=== PATIENT | male | born 1990 | race Caucasian/White ===

== ENCOUNTER 2017-12-26 08:25 | Emergency (ER) | payer OTHER ==
[2017-12-26 08:37] VITALS: BP 131/58; PULSE 81; RESP 16; TEMP 98
--- NOTE | 2017-12-26 08:48 | ED ---
General Adult HPI - General Chief complaint: Extremity Injury, Upper Stated complaint: Splinter Time Seen by Provider: 12/26/17 08:41 Source: patient, RN notes reviewed Mode of arrival: ambulatory Limitations: no limitations - History of Present Illness Initial comments: Patient 27-year-old male who presents emergency room today with a chief complaint of possible foreign body to the right index finger. He states that a few days ago noticed that he had a sliver. He states tried to get out on his own but is been unable to. He states woke up today with increased swelling of redness and pain to the right index finger. Patient states his tetanus is up-to -date. He denies any other complaints at this time. Patient denies any recent fever, chills, shortness of breath, chest pain, back pain, abdominal pain, nausea or vomiting, numbness tingling, headaches or visual changes, or any other complaints. - Related Data Home Medications Medication Instructions Recorded Confirmed EPINEPHrine (Auto Inject) [Epipen] 0.3 mg IM ONCE 12/26/17 12/26/17 Previous Rx's Medication Instructions Recorded Amoxicillin/Potassium Clav 1 each PO Q12HR #20 tab 12/26/17 [Augmentin 875-125 Tablet] Allergies Allergy/AdvReac Type Severity Reaction Status Date / Time bee venom protein (honey bee) Allergy Anaphylaxis Verified 12/26/17 08:47 Review of Systems ROS Statement: Those systems with pertinent positive or pertinent negative responses have been documented in the HPI. ROS Other: All systems not noted in ROS Statement are negative. Past Medical History Past Medical History: No Reported History History of Any Multi-Drug Resistant Organisms: None Reported Past Surgical History: No Surgical Hx Reported Past Psychological History: No Psychological Hx Reported Smoking Status: Current every day smoker Past Alcohol Use History: Occasional Past Drug Use History: None Reported General Exam - General Exam Comments Initial Comments: General: The patient is awake and alert, in no distress, and does not appear acutely ill. Neck: The neck is supple, there is no tenderness or JVD. Cardiovascular: There is a regular rate and rhythm. No murmur, rub or gallop is appreciated. Respiratory: Lungs are clear to auscultation, respirations are non-labored, breath sounds are equal. No wheezes, stridor, rales, or rhonchi. Musculoskeletal: Patient does show good range of motion of the right index finger. Slightly decreased due to pain and swelling. Does have redness and inflammation and swelling around the PIP joint and distally. Cap refill less than 2 seconds. Sensations are intact. Strength is 5/5. Pulses equal bilaterally 2+. Neurological: A&O x 3. CN II-XII intact, There are no obvious motor or sensory deficits. Coordination appears grossly intact. Speech is normal. Skin: Skin is warm and dry and no rashes or lesions are noted. Psychiatric: Normal mood and affect. Limitations: no limitations Course Vital Signs 12/26/17 08:34 Temperature 98 F Pulse Rate 81 Respiratory 16 Rate Blood Pressure 131/58 O2 Sat by Pulse 98 Oximetry Procedures - Procedures Initial comment: 1% lidocaine was used to anesthetize the right index finger at the head of the metacarpals. 11 blade was used to drag ulcerated area for any evidence of foreign body. Unable to determine the direction of which sliver went through the skin. Medical Decision Making - Medical Decision Making Unable to remove foreign body here in emergency room. Advised patient to follow up with orthopedics and call the office later today. Patient was here on antibiotics. His tetanus is up-to-date. He is advised to return to emergency room symptoms increase or worsen. Disposition Clinical Impression: Foreign body finger, Finger infection Disposition: HOME SELF-CARE Condition: Good Instructions: Soft Tissue Foreign Body (ED) Additional Instructions: Please follow-up with orthopedics on-call the office later today for an appointment. Please use antibiotic as prescribed. Please return to emergency room if there is increased pain swelling. Prescriptions: Amoxicillin/Potassium Clav [Augmentin 875-125 Tablet] 1 each PO Q12HR #20 tab Referrals: Ana Rosa Young DO [Primary Care Provider] - 1-2 days Mack Pichardo DO [Doctor of Osteopathic Medicine] - 1-2 days Time of Disposition: 09:36
--- NOTE | 2017-12-26 08:59 | XR ---
EXAMINATION TYPE: XR finger RT DATE OF EXAM: 12/26/2017 COMPARISON: NONE HISTORY: Right finger pain with wood sliver injury. TECHNIQUE: 3 views of right second finger are acquired. FINDINGS: There is focal soft tissue swelling along radial dorsal aspect at second PIP joint. No radi odense foreign body is present. No acute fracture or dislocation is seen. Joint spaces are preserved. IMPRESSION: Focal Soft tissue swelling without acute fracture or dislocation.
== END 2017-12-26 09:46 | disposition home or self-care (01) ==
LOC: EC 08:25
DX: S60.450A Superficial foreign body of right index finger, initial encounter (principal); L08.9 Local infection of the skin and subcutaneous tissue, unspecified; F17.200 Nicotine dependence, unspecified, uncomplicated; W45.8XXA Other foreign body or object entering through skin, initial encounter; Z79.899 Other long term (current) drug therapy; Z91.030 Bee allergy status
CPT/HCPCS: 99283

== ENCOUNTER 2019-11-01 16:47 | Emergency (ER) | payer OTHER ==
[2019-11-01 17:06] VITALS: RESP 18
--- NOTE | 2019-11-01 17:48 | ED ---
Male Urogenital HPI - General Chief complaint: Urogenital Stated complaint: testicle pain Time Seen by Provider: 11/01/19 17:11 Source: patient Mode of arrival: ambulatory Limitations: no limitations - History of Present Illness Initial comments: Patient is a 29-year-old male presenting to emergency Department with complaints of right groin pain that extends into his right testicle. Patient states 4 days ago he was cleaning his garage and moved around his snowmobile when he started having pain in his right groin. Patient states the pain feels worse when he is up and moving around. Patient states when he sits for long periods the pain does decrease. Patient denies any fever, chills, nausea, vomiting, diarrhea. Patient denies any abdominal surgeries. Patient has been having regular bowel movements and has no urinary complaints. Patient states his right testicle is sore to the touch however is not red or swollen. Patient has no other co mplaints at this time. Upon arrival to the ER, vital signs are stable. - Related Data Home Medications Medication Instructions Recorded Confirmed EPINEPHrine (Auto Inject) [Epipen] 0.3 mg IM ONCE 12/26/17 12/26/17 Previous Rx's Medication Instructions Recorded Amoxicillin/Potassium Clav 1 each PO Q12HR #20 tab 12/26/17 [Augmentin 875-125 Tablet] Allergies Allergy/AdvReac Type Severity Reaction Status Date / Time bee venom protein (honey bee) Allergy Anaphylaxis Verified 11/01/19 17:04 Review of Systems ROS Statement: Those systems with pertinent positive or pertinent negative responses have been documented in the HPI. ROS Other: All systems not noted in ROS Statement are negative. Past Medical History Past Medical History: No Reported History History of Any Multi-Drug Resistant Organisms: None Reported Past Surgical History: No Surgical Hx Reported Past Psychological History: No Psychological Hx Reported Smoking Status: Current every day smoker Past Alcohol Use History: Occasional Past Drug Use History: Marijuana General Exam - General Exam Comments Initial Comments: GENERAL: Well-appearing, well-nourished and in no acute distress. HEAD: Atraumatic, normocephalic. EYES: Pupils equal round and reactive to light, extraocular movements intact, sclera anicteric, conjunctiva are normal. ENT: TMs normal, nares patent, oropharynx clear without exudates. Moist mucous membranes. NECK: Normal range of motion, supple without lymphadenopathy or JVD. LUNGS: Breath sounds clear to auscultation bilaterally and equal. No wheezes rales or rhonchi. HEART: Regular rate and rhythm without murmurs, rubs or gallops. ABDOMEN: Tender to palpation of the right inguinal area. No tenderness to palpation of the abdomen. Soft, normoactive bowel sounds. No guarding, no rebound. No masses appreciated. EXTREMITIES: Normal range of motion, no pitting or edema. No clubbing or cyanosis. NEUROLOGICAL: Normal speech, normal gait. PSYCH: Normal mood, normal affect. SKIN: Warm, Dry, normal turgor, no rashes or lesions noted. Limitations: no limitations exam: Present: testicular tenderness (Right testicle is painful with palpation, no abnormalities felt). Absent: urethral discharge, scrotal swelling Course Vital Signs 11/01/19 11/01/19 17:04 18:33 Temperature 98.6 F 98.7 F Pulse Rate 72 75 Respiratory 18 18 Rate Blood Pressure 123/85 126/87 O2 Sat by Pulse 97 98 Oximetry Medical Decision Making - Medical Decision Making Patient is a 29-year-old male presenting with right groin pain 4 days. She a lso has some mild pain with palpation of the right testicle. There is no swelling or erythema. Vital signs are stable. Ultrasound of the right groin shows no acute abnormalities other than a lymph node. UA is normal. As discussed with patient that this most likely a muscle strain. Patient will follow up with his PCP if symptoms persist. Patient is agreement with this plan and he is stable for discharge this time. Return parameters were discussed with the patient and he verbalized understanding. Case discussed with Dr. Nieto. - Lab Data Lab Results 11/01/19 Range/Units 18:20 Urine Color Yellow Urine Appearance Clear (Clear) Urine pH 6.5 (5.0-8.0) Ur Specific [place] 1.020 (1.001-1.035) Urine Protein Negative (Negative) Urine Glucose (UA) Negative (Negative) Urine Ketones Negative (Negative) Urine Blood Negative (Negative) Urine Nitrite Negative (Negative) Urine Bilirubin Negative (Negative) Urine Urobilinogen <2.0 (<2.0) mg/dL Ur Leukocyte Esterase Negative (Negative) Disposition Clinical Impression: Right inguinal pain Disposition: HOME SELF-CARE Condition: Stable Instructions (If sedation given, give patient instructions): Groin Strain (ED) Additional Instructions: Please return to the Emergency Department if symptoms worsen or any other concerns. Follow-up with PCP as discussed. Is patient prescribed a controlled substance at d/c from ED?: No Referrals: Milan Ibarra MD [Primary Care Provider] - 1-2 days
--- NOTE | 2019-11-01 18:06 | US ---
EXAMINATION TYPE: US groin RT DATE OF EXAM: 11/01/2019 COMPARISON: NONE CLINICAL HISTORY: pain. Right groin pain. TECHNIQUE/FINDINGS: Grayscale and color ultrasound were performed of the right groin. No solid or cys tic mass. Vasculature imaged appears patent. Normal-appearing nonenlarged superficial inguinal lymph node is seen. No abnormalities seen. IMPRESSION: Unremarkable targeted right groin ultrasound.
[2019-11-01 18:31] LABS: Appearance,Urine Clear (Clear); Bilirubin,Urine Negative (Negative); Blood,Urine Negative (Negative); Color,Urine Yellow; Glucose,Urine (UA) Negative (Negative); Ketones,Urine Negative (Negative); Leukocyte Esterase,Urine Negative (Negative); Nitrite,Urine Negative (Negative); PH, Urine 6.5 (5.0-8.0); Protein,Urine Negative (Negative); Urobilinogen,Urine <2.0 mg/dL (<2.0)
[2019-11-01 18:34] VITALS: BP 126/87; PULSE 75; TEMP 98.7
== END 2019-11-01 18:34 | disposition home or self-care (01) ==
LOC: EC 16:47
DX: R10.31 Right lower quadrant pain (principal); F17.200 Nicotine dependence, unspecified, uncomplicated; Z91.030 Bee allergy status
CPT/HCPCS: 81003; 99284

== ENCOUNTER 2024-01-28 19:16 | Inpatient (IN) | payer BC, OTHER ==
--- NOTE | 2024-01-28 19:34 | ED ---
Chest Pain HPI - General Source: patient Mode of arrival: ambulatory Limitations: no limitations <Te Choudhury - Last Filed: 01/28/24 19:35> <Benny Coughlin - Last Filed: 01/29/24 00:38> - General Chief Complaint: Chest Pain Stated Complaint: chest pain left arm numbness SOB Time Seen by Provider: 01/28/24 19:33 - History of Present Illness Initial Comments: Quicknote 33 year old male presenting to the ED with a chief complaint of chest pain. States started approximately an hour ago. Notes some associated shortness of breath. PPD smoker. (Te Choudhury) - Related Data Home Medications Medication Instructions Recorded Confirmed No Known Home Medications 01/28/24 01/28/24 Allergies Allergy/AdvReac Type Severity Reaction Status Date / Time bee venom protein (honey bee) Allergy Anaphylaxis Verified 01/28/24 21:44 Review of Systems ROS Other: All systems not noted in ROS Statement are negative. <Te Choudhury - Last Filed: 01/28/24 19:35> ROS Other: All systems not noted in ROS Statement are negative. Constitutional: Denies: fever, chills Respiratory: Denies: cough, dyspnea Cardiovascular: Reports: chest pain. Denies: palpitations, orthopnea, edema, syncope Gastrointestinal: Denies: abdominal pain, nausea, vomiting, diarrhea Genitourinary: Denies: dysuria, hematuria Musculoskeletal: Denies: back pain Skin: Denies: rash Neurological: Denies: headache, weakness, numbness <Benny Coughlin - Last Filed: 01/29/24 00:38> ROS Statement: Those systems with pertinent positive or pertinent negative responses have been documented in the HPI. EKG Findings - EKG Results: EKG: interpreted by MERLY BAEZ, sinus rhythm (Rate 73 bpm), normal axis, normal QRS, normal ST/T, no acute changes <Benny Coughlin - Last Filed: 01/29/24 00:38> Past Medical History Past Medical History: No Reported History History of Any Multi-Drug Resistant Organisms: None Reported Past Surgical History: No Surgical Hx Reported Past Psychological History: No Psychological Hx Reported Past Alcohol Use History: Occasional Past Drug Use History: Marijuana <Te Choudhury - Last Filed: 01/28/24 19:35> General Exam Limitations: no limitations <Te Choudhury - Last Filed: 01/28/24 19:35> Limitations: no limitations General appearance: alert Head exam: Present: atraumatic, normocephalic Eye exam: Present: normal appearance. Absent: scleral icterus, conjunctival injection Neck exam: Present: normal inspection Respiratory exam: Present: normal lung sounds bilaterally, chest wall tenderness. Absent: respiratory distress, wheezes, rales, rhonchi, stridor, accessory muscle use Cardiovascular Exam: Present: regular rate, normal rhythm, normal heart sounds. Absent: systolic murmur, diastolic murmur, rubs, gallop GI/Abdominal exam: Present: soft. Absent: distended, tenderness, guarding, rebound, rigid, mass Extremities exam: Present: normal inspection, normal capillary refill. Absent: pedal edema, calf tenderness Back exam: Present: normal inspection. Absent: CVA tenderness (R), CVA tenderness (L) Neurological exam: Present: alert Skin exam: Present: warm, dry, intact, normal color. Absent: rash <Benny Coughlin - Last Filed: 01/29/24 00:38> - General Exam Comments Initial Comments: Visual Physical Exam Vital signs reviewed General: Well-appearing, nontoxic, no acute distress. Head: Normocephalic, atraumatic Eyes: PERRLA, EOMI ENT: Airway patent Chest: Nonlabored breathing Skin: No visual rash, normal skin tone Neuro: Alert and oriented 3 Musculoskeletal: No gross abnormalities (Te Choudhury) Course Vital Signs 01/28/24 01/28/24 01/28/24 19:18 20:52 21:31 Temperature 97.8 F 97.8 F Pulse Rate 71 68 Respiratory 12 18 Rate Blood Pressure 112/72 123/85 O2 Sat by Pulse 98 97 Oximetry 01/29/24 00:00 Temperature Pulse Rate 60 Respiratory 18 Rate Blood Pressure 110/64 O2 Sat by Pulse 99 Oximetry Chest Pain MDM <Te Choudhury - Last Filed: 01/28/24 19:35> <Benny Coughlin - Last Filed: 01/29/24 00:38> - MDM Quicknote portion performed. Signed Te Choudhury PA-C (Te Choudhury) Patient is a 33-year-old man presenting with symptoms concerning for acute coronary syndrome. Started on aspirin, morphine, nitrates, heparin Patient had chest x-ray which I interpreted as negative for acute infiltrate, pneumothorax, congestive heart failure The patient's symptoms resolved he states he does not have any residual pain. The patient's troponin was elevated and he is discussed with cardiology and will have admission, possible heart catheterization in the morning.. (Benny Coughlin) Critical Care Time Critical Care Time: Yes (30 minutes) <Benny Coughlin - Last Filed: 01/29/24 00:38> Disposition <Te Choudhury - Last Filed: 01/28/24 19:35> <Benny Coughlin - Last Filed: 01/29/24 00:38> Clinical Impression: Acute coronary syndrome Disposition: ADMITTED IP TO THIS HOSP Condition: Serious
[2024-01-28 19:56] LABS: Basophils % (A) 0 %; Eosinophils # (A) 0.2 k/uL (0-0.7); Eosinophils % (A) 2 %; HCT 49.4 % (39.0-53.0); HGB 16.7 gm/dL (13.0-17.5); Lymphocytes # (A) 1.1 k/uL (1.0-4.8); Lymphocytes % (A) 15 %; MCH 29.8 pg (25.0-35.0); MCHC 33.8 g/dL (31.0-37.0); MCV 88.1 fL (80.0-100.0); Mean Platelet Volume 8.3; Monocytes # (A) 0.5 k/uL (0-1.0); Monocytes % (A) 7 %; Neutrophils # (A) 5.4 k/uL (1.3-7.7); Neutrophils % (A) 74 %; Platelet Count 218 k/uL (150-450); RDW 13.2 % (11.5-15.5); WBC 7.3 k/uL (3.8-10.6)
--- NOTE | 2024-01-28 19:56 | XR ---
EXAMINATION TYPE: XR chest 2V DATE OF EXAM: 01/28/2024 7:40 PM CLINICAL INDICATION:Male, 33 years old with history of shortness of breath; PHH COMPARISON: None TECHNIQUE: XR chest 2V. Frontal and lateral views of the chest.. FINDINGS: Lines/Tubes/Devices: No indwelling lines are seen. Heart/mediastinum: Heart size is normal. Mediastinum appears normal. Pulmonary vascularity: Not increased, Lungs/Pleura: There is no evidence of pleural effusion, focal consolidation, or pneumothorax. Minima l linear atelectasis or scarring in the right mid to lower lung zones. Musculoskeletal: No acute osseous abnormality demonstrated in the limits of the exam. Other findings: None. IMPRESSION: No acute cardiopulmonary abnormality.
[2024-01-28 20:11] LABS: ALT 34 U/L (4-49); AST 32 U/L (17-59); African American GFR (CKD) >90 (>60 ml/min/1.73 sqM); Albumin 4.4 g/dL (3.5-5.0); Alkaline Phosphatase 87 U/L (38-126); Anion Gap 7 mmol/L; Blood Urea Nitrogen 19 mg/dL (9-20); Calcium 9.3 mg/dL (8.4-10.2); Carbon Dioxide 24 mmol/L (22-30); Chloride 105 mmol/L (98-107); Glucose 98 mg/dL (74-99); Non-African American GFR(CKD) 80 (>60 ml/min/1.73 sqM); Sodium 136 mmol/L (137-145); Total Bilirubin 0.8 mg/dL (0.2-1.3); Total Protein 6.9 g/dL (6.3-8.2)
[2024-01-28 20:37] LABS: INR 1.1 (<1.2); Partial Thromboplastin Time 27.9 sec (22.0-30.0); Prothrombin Time 11.9 sec (10.0-12.5)
[2024-01-28] MEDS: ASPIRIN 81 MG PO STA (21:21)
[2024-01-28] MEDS: HEPARIN SOD,PORK IN 0.45% NACL 25,000 UNIT in 0.45% NACL 1 250ML.BAG IV SCH (21:23)
[2024-01-28] MEDS: HEPARIN SODIUM 1,000 UN/ML (10ML VL) IV ONE (21:27)
[2024-01-28] MEDS: MORPHINE SULFATE 4 MG/ML SYRINGE IV STA (21:31)
[2024-01-28] MEDS ORDERED: NITROGLYCERIN SL TABS 0.4 MG TAB SUBLINGUAL PRN (21:32)
[2024-01-28] MEDS: NITROGLYCERIN SL TABS 0.4 MG TAB SUBLINGUAL STA (21:35)
[2024-01-29 02:33] LABS: Basophils % (A) 1 %; Eosinophils # (A) 0.4 k/uL (0-0.7); Eosinophils % (A) 6 %; HCT 48.6 % (39.0-53.0); HGB 16.2 gm/dL (13.0-17.5); Lymphocytes # (A) 1.9 k/uL (1.0-4.8); Lymphocytes % (A) 30 %; MCH 29.7 pg (25.0-35.0); MCHC 33.4 g/dL (31.0-37.0); MCV 88.8 fL (80.0-100.0); Mean Platelet Volume 8.5; Monocytes # (A) 0.6 k/uL (0-1.0); Monocytes % (A) 9 %; Neutrophils # (A) 3.3 k/uL (1.3-7.7); Neutrophils % (A) 52 %; Platelet Count 211 k/uL (150-450); RBC 5.47 m/uL (4.30-5.90); RDW 13.4 % (11.5-15.5); WBC 6.3 k/uL (3.8-10.6)
[2024-01-29 02:37] LABS: Partial Thromboplastin Time 34.8 sec (22.0-30.0); Prothrombin Time 10.7 sec (10.0-12.5)
[2024-01-29] MEDS: HEPARIN SODIUM 1,000 UN/ML (10ML VL) IV PRN (03:53)
[2024-01-29] MEDS: LORazepam 2 MG/ML INJ IV STA (05:03)
[2024-01-29] MEDS ORDERED: HEPARIN SODIUM,PORCINE 10,000 UNIT in SODIUM CHLORIDE 0.9% 1,000 ML IRRIGATION PRN (07:00)
[2024-01-29] MEDS ORDERED: HEPARIN SODIUM,PORCINE (1 ML) 2,500 UNIT in SODIUM CHLORIDE 0.9% 250 ML IRRIGATION PRN (07:00)
[2024-01-29] MEDS ORDERED: ALPRAZolam 0.5 MG TAB PO PRN (08:36)
[2024-01-29] MEDS ORDERED: NITROGLYCERIN SL TABS 0.4 MG TAB SUBLINGUAL PRN ×2 (08:36→11:58)
[2024-01-29] MEDS: ASPIRIN 81 MG PO SCH (08:45)
[2024-01-29] MEDS: ATORVASTATIN 80 MG TAB PO SCH (08:45)
[2024-01-29 08:54] LABS: Chol/HDL Ratio 5.81 Ratio; LDL Cholesterol,Calculated 194.5 mg/dL (0.0-131.0); VLDL Calculation 13.28 mg/dL (5.00-40.00)
[2024-01-29] MEDS ORDERED: ASPIRIN 325 MG TAB PO SCH (09:00)
[2024-01-29] MEDS: ASPIRIN 325 MG TAB PO STA (09:10)
[2024-01-29] MEDS: NICOTINE 21MG/24HR PATCH TRANSDERM SCH (09:11)
[2024-01-29] MEDS: ATORVASTATIN 80 MG TAB PO STA (09:11)
[2024-01-29] MEDS: SODIUM CHLORIDE 0.9% 1,000 ML in EMPTY BAG 1 BAG IV ONE (09:11)
--- NOTE | 2024-01-29 09:16 | P.HPIM ---
History of Present Illness This is a pleasant 33 years old male with no significant past medical history Patient presents because of central chest pain of one or duration, nonradiating Clock sharp about 7-8/10 in severity but currently completely resolved as 0/10. It was associated with left arm numbness and the total shortness of breath which are also resolved now. Patient denies any coughing, no headache dizziness. No weakness numbness. No change in urine or bowel habits He smokes 1 pack per day and he was counseled to quit and he agrees. He denies alcohol or illicit tracts. Vitas looks stable. He has unremarkable CBC, INR, BMP, liver enzymes Is -0.55 D-dimer is negative at 0.55 Troponin is elevated 0.6, 1.0 and 1.1 patient started on aspirin 81 mg Lipitor on heparin drip Review of Systems Review of systems CONSTITUTIONAL: No fever, no malaise, no fatigue. HEENT: No recent visual problems or hearing problems. Denied any sore throat. CARDIOVASCULAR: No orthopnea, PND, no palpitations, no syncope. PULMONARY: No shortness of breath, no cough, no hemoptysis. GASTROINTESTINAL: No diarrhea, no nausea, no vomiting, no abdominal pain. Normoactive bowel sounds. NEUROLOGICAL: No headaches, no weakness, no numbness. HEMATOLOGICAL: Denies any bleeding or petechiae. GENITOURINARY: Denies any burning micturition, frequency, or urgency. MUSCULOSKELETAL/RHEUMATOLOGICAL: Denies any joint pain, swelling, or any muscle pain. ENDOCRINE: Denies any polyuria or polydipsia. Past Medical History Past Medical History: No Reported History History of Any Multi-Drug Resistant Organisms: None Reported Past Surgical History: No Surgical Hx Reported Past Psychological History: No Psychological Hx Reported Past Alcohol Use History: Occasional Past Drug Use History: Marijuana Medications and Allergies Home Medications Medication Instructions Recorded Confirmed Type No Known Home Medications 01/28/24 01/28/24 History Allergies Allergy/AdvReac Type Severity Reaction Status Date / Time bee venom protein (honey bee) Allergy Anaphylaxis Verified 01/28/24 21:44 Physical Exam Vitals: Vital Signs Temp Pulse Resp BP Pulse Ox 01/29/24 07:00 76 16 117/77 98 01/29/24 04:00 65 16 121/69 98 01/29/24 02:00 66 16 118/65 98 01/29/24 00:50 85 16 104/85 98 01/29/24 00:00 60 18 110/64 99 01/28/24 21:31 68 18 123/85 97 01/28/24 20:52 97.8 F 71 12 112/72 98 01/28/24 19:18 97.8 F Intake and Output 01/28/24 01/29/24 01/29/24 22:59 06:59 14:59 Intake Total 64.693 Balance 64.693 Intake: Intake, IV Titration 64.693 Amount Heparin Sod,Pork in 0.45% 64.693 NaCl 25,000 unit In 0.45 % NaCl 1 250ml.bag @ 9.19 UNITS/KG/HR 10.004 mls/ hr IV .Q24H [facility] Rx#: [id number] Other: Weight 108.862 kg GENERAL: The patient is alert and oriented x3, not in any acute distress. Well developed, well nourished. HEENT: Pupils are round and equally reacting to light. EOMI. No scleral icterus. No conjunctival pallor. Normocephalic, atraumatic. No pharyngeal erythema. No thyromegaly. CARDIOVASCULAR: S1 and S2 present. No murmurs, rubs, or gallops. PULMONARY: Chest is clear to auscultation, no wheezing , no crackles. ABDOMEN: Soft, nontender, nondistended, normoactive bowel sounds. No palpable organomegaly. MUSCULOSKELETAL: No joint swelling or deformity. EXTREMITIES: No cyanosis, clubbing, or pedal edema. NEUROLOGICAL: Gross neurological examination did not reveal any focal deficits. SKIN: No rashes. no petechiae. Results CBC & Chem 7: 01/29/24 01:58 01/28/24 19:22 Labs: Abnormal Lab Results - Last 24 Hours (Table) 01/28/24 01/28/24 01/28/24 Range/Units 17:57 19:22 19:22 APTT (22.0-30.0) sec Sodium 136 L (137-145) mmol/L Troponin I 0.603 H* (0.000-0.034) ng/mL Cholesterol 251.00 H (0.00-200.00) mg/dL LDL Cholesterol, Calc 194.5 H (0.0-131.0) mg/dL 01/28/24 01/29/24 01/29/24 Range/Units 23:15 01:58 01:58 APTT 34.8 H (22.0-30.0) sec Sodium (137-145) mmol/L Troponin I 1.010 H* 1.110 H* (0.000-0.034) ng/mL Cholesterol (0.00-200.00) mg/dL LDL Cholesterol, Calc (0.0-131.0) mg/dL Assessment and Plan Assessment: None STEMI Nicotine dependence Obesity with BMI of 30.8 Plan: Continue with aspirin 81 mg Lipitor on heparin drip Cartilage consult for possible cardiac cath Echocardiogram Continue with symptomatic treatment. Resume home medication. Monitor labs and vitals. DVT and GI prophylaxis. Further recommendations as per clinical course of the patient DVT prophylaxis: heparin GI Prophylaxis: Pepcid Prognosis is guarded
[2024-01-29] MEDS ORDERED: VERAPAMIL 2.5 MG/ML 2 ML AMP ONE (10:08)
[2024-01-29] MEDS ORDERED: LIDOCAINE 1% INJ 10MG/ML (20 ML MDV) ONE (10:08)
[2024-01-29] MEDS: SODIUM CHLORIDE 0.9% 950 ML IV ONE (10:35)
[2024-01-29] MEDS ORDERED: HEPARIN SODIUM 1,000 UN/ML (10ML VL) ONE (10:39)
[2024-01-29] MEDS: MIDAZOLAM 2 MG/2 ML VIAL IVP ONE ×2 (10:45→10:55)
--- NOTE | 2024-01-29 10:52 | P.CRDCN ---
History of Present Illness Consult date: 01/29/24 Reason for Consult (text): Acute coronary syndrome History of present illness: History of present illness: This is a 33-year-old male with no previous past medical history, tobacco use and marijuana use. We have been asked to evaluate the patient for acute coronary syndrome. Patient presented to the emergency center with chest pain, shortness of breath. Patient gives history that he developed sharp pressure type midsternal chest pain. This started yesterday at 6 PM while he was carrying firewood into the house. It resolved after about 1 and half hours and after he received morphine. He has had these episodes in the past but they are usually brief and only last about 5 to 10 minutes and go away on their own. Yesterday he also had difficulty in breathing and left arm numbness on and off. He denies having any sweats. No lightheadedness or dizziness no syncopal episodes. He is a smoker of 1 pack/day. He denies any alcohol marijuana or illicit drug use. The father young from myocardial infarction. Mother is alive at age 62 with history of 2 myocardial infarction's and CABG with initially diagnosed at age approximately 52. Patient himself does not have any history of cardiac disease and does not follow with a cable engineer. Patient has been started on aspirin morphine nitrates and a heparin drip. Patient is seen today in the emergency center waiting for bed on the cardiac stepdown unit. Discussed results of testing and recommendations for cardiac catheterization and patient is in agreement to move forward with this today. EKG sinus rhythm with no acute ST-T wave changes. Chest x-ray: No acute process CBC INR electrolytes renal function liver function test all unremarkable. Troponin 0.603, 1.01, 1.11. Home cardiac medications: None Review Of Systems: At the time of my exam: CONSTITUTIONAL: Denies fever or chills. HEENT: Denies blurred vision, vision changes, or eye pain. Denies hemoptysis CARDIOVASCULAR: Denies chest pain. Denies orthopnea. Denies PND. Denies palpitations RESPIRATORY: Denies shortness of breath. GASTROINTESTINAL: Denies abdominal pain. Denies nausea or vomiting. HEMATOLOGIC: Denies bleeding disorders. GENITOURINARY: Denies any blood in urine. SKIN: Denies pruitis. Denies rash. Physical examination: Gen: This is a 33-year-old male in no acute distress VS: reviewed blood pressure 117/77, heart rate 76, pulse ox 90% on room air. HEENT: Head is atraumatic, normocephalic. Pupils equal, round. Sclerae is anicteric. NECK: Supple. No JVD. LUNGS: Clear to auscultation. No wheezes or rhonchi. No intercostal retractions. HEART: Regular rate and rhythm. No murmur. ABDOMEN: Soft No tenderness. EXTREMITIES: No pedal edema. No calf tenderness. NEUROLOGICAL: Patient is awake, alert and oriented x3. Assessment: Non-ST elevated myocardial infarction Tobacco use and dependence Family history of premature coronary artery disease Plan: Continue current cardiac medications Continue heparin drip Start patient on atorvastatin 80 mg daily and Toprol XL 25 mg daily, decrease aspirin 81 mg daily Schedule patient for cardiac catheterization today with Dr. Rai Obtain 2-D echocardiogram and Doppler study to assess cardiac structure and function Further recommendations to follow based upon clinical course Thank you kindly for this consultation. Nurse practitioner note has been reviewed, I agree with documented findings and plan of care. Patient was seen and examined. Past Medical History Past Medical History: No Reported History History of Any Multi-Drug Resistant Organisms: None Reported Past Surgical History: No Surgical Hx Reported Past Psychological History: No Psychological Hx Reported Past Alcohol Use History: Occasional Past Drug Use History: Marijuana Medications and Allergies Home Medications Medication Instructions Recorded Confirmed Type No Known Home Medications 01/28/24 01/28/24 History Allergies Allergy/AdvReac Type Severity Reaction Status Date / Time bee venom protein (honey bee) Allergy Anaphylaxis Verified 01/28/24 21:44 Physical Exam Vitals: Vital Signs Temp Pulse Resp BP Pulse Ox 01/29/24 07:00 76 16 117/77 98 01/29/24 04:00 65 16 121/69 98 01/29/24 02:00 66 16 118/65 98 01/29/24 00:50 85 16 104/85 98 01/29/24 00:00 60 18 110/64 99 01/28/24 21:31 68 18 123/85 97 01/28/24 20:52 97.8 F 71 12 112/72 98 01/28/24 19:18 97.8 F Intake and Output 01/28/24 01/29/24 01/29/24 22:59 06:59 14:59 Intake Total 64.693 Balance 64.693 Intake: Intake, IV Titration 64.693 Amount Heparin Sod,Pork in 0.45% 64.693 NaCl 25,000 unit In 0.45 % NaCl 1 250ml.bag @ 9.19 UNITS/KG/HR 10.004 mls/ hr IV .Q24H [facility] Rx#: [id number] Other: Weight 108.862 kg Results 01/29/24 01:58 01/28/24 19:22 Cardiac Enzymes 01/28/24 01/28/24 01/28/24 Range/Units 19:22 19:22 23:15 AST 32 (17-59) U/L Troponin I 0.603 H* 1.010 H* (0.000-0.034) ng/mL 01/29/24 Range/Units 01:58 AST (17-59) U/L Troponin I 1.110 H* (0.000-0.034) ng/mL Coagulation 01/28/24 01/29/24 Range/Units 19:22 01:58 PT 11.9 10.7 (10.0-12.5) sec APTT 27.9 34.8 H (22.0-30.0) sec CBC 01/28/24 01/29/24 Range/Units 19:22 01:58 WBC 7.3 6.3 (3.8-10.6) k/uL RBC 5.60 5.47 (4.30-5.90) m/uL Hgb 16.7 16.2 (13.0-17.5) gm/dL Hct 49.4 48.6 (39.0-53.0) % Plt Count 218 211 (150-450) k/uL Comprehensive Metabolic Panel 01/28/24 Range/Units 19:22 Sodium 136 L (137-145) mmol/L Potassium 4.0 (3.5-5.1) mmol/L Chloride 105 (98-107) mmol/L Carbon Dioxide 24 (22-30) mmol/L BUN 19 (9-20) mg/dL Creatinine 1.18 (0.66-1.25) mg/dL Glucose 98 (74-99) mg/dL Calcium 9.3 (8.4-10.2) mg/dL AST 32 (17-59) U/L ALT 34 (4-49) U/L Alkaline Phosphatase 87 (38-126) U/L Total Protein 6.9 (6.3-8.2) g/dL Albumin 4.4 (3.5-5.0) g/dL Current Medications Generic Name Dose Route Start Last Admin Trade Name Freq PRN Reason Stop Dose Admin Aspirin 325 mg 01/29/24 09:00 Aspirin 325 Mg Tab PO DAILY [facility] Heparin Sodium (Porcine) 0 unit 01/28/24 20:45 01/29/24 03:53 Heparin Sodium 1,000 Un/Ml (10ml Vl) IV 4,000 unit PER PROTOCOL PRN Administration Low PTT Protocol Heparin Sodium/Sodium Chloride 250 mls @ 10.004 mls/hr 01/28/24 20:45 01/29/24 03:51 25,000 unit/ Sodium Chloride IV 12.19 units/kg/hr .Q24H [facility] 13.27 mls/hr Titration Protocol 9.19 UNITS/KG/HR Nitroglycerin 0.4 mg 01/28/24 21:32 Nitroglycerin Sl Tabs 0.4 Mg Tab SUBLINGUAL Q5M PRN Chest Pain Intake and Output 01/28/24 01/29/24 01/29/24 22:59 06:59 14:59 Intake Total 64.693 Balance 64.693 Intake: Intake, IV Titration 64.693 Amount Heparin Sod,Pork in 0.45% 64.693 NaCl 25,000 unit In 0.45 % NaCl 1 250ml.bag @ 9.19 UNITS/KG/HR 10.004 mls/ hr IV .Q24H [facility] Rx#: [id number] Other: Weight 108.862 kg 01/29/24 01:58 01/28/24 19:22
[2024-01-29] MEDS: LIDOCAINE 1% INJ 10MG/ML (20 ML MDV) SQ ONE (11:03)
[2024-01-29] MEDS: HYDROmorphone 1 MG/ML 1 ML SYRINGE IVP ONE (11:07)
[2024-01-29] MEDS: VERAPAMIL SYRINGE (5 MG/10 ML) INTRAARTER ONE (11:07)
[2024-01-29] MEDS: HEPARIN SODIUM 1,000 UN/ML (10ML VL) IVP ONE (11:08)
[2024-01-29] MEDS ORDERED: PRASUGREL 10 MG TAB ONE (11:16)
[2024-01-29] MEDS: PRASUGREL 10 MG TAB PO ONE (11:19)
[2024-01-29] MEDS ORDERED: niCARdipine 25 MG/10 ML VIAL ONE (11:31)
--- NOTE | 2024-01-29 11:34 | CA ---
Transthoracic Echo Report Name: Pollo Alfred Age: 33 Gender: M : 1990 Exam Date: 01/29/2024 09:38 Exam Location: [facility] Ht (in): 74 Wt (lb): 240 Ordering Physician: Yadi Michelle Attending/Referring Phys: [id number], Miguel Angel Foil Wrapper Charito Ruiz RDCS Procedure CPT: Indications: LVF Cardiac Hx: Technical Quality: Fair Contrast 1: Total Dose (mL): Contrast 2: Total Dose (mL): MEASUREMENTS (Male / Female) Normal Values 2D ECHO LV Diastolic Diameter PLAX 4.2 cm 4.2 - 5.9 / 3.9 - 5.3 cm LV Systolic Diameter PLAX 2.8 cm IVS Diastolic Thickness 1.2 cm 0.6 - 1.0 / 0.6 - 0.9 cm LVPW Diastolic Thickness 1.1 cm 0.6 - 1.0 / 0.6 - 0.9 cm LV Relative Wall Thickness 0.5 RV Internal Dim ED PLAX 3.3 cm LA Volume 55.1 cm??? 18 - 58 / 22 - 52 cm??? LA Volume Index 22.9 cm???/m??? 16 - 28 cm???/m??? M-MODE Aortic Root Diameter MM 3.3 cm LA Systolic Diameter MM 3.0 cm LA Ao Ratio MM 0.9 AV Cusp Separation MM 2.3 cm DOPPLER AV Peak Velocity 119.1 cm/s AV Peak Gradient 5.7 mmHg AV Mean Velocity 84.5 cm/s AV Mean Gradient 3.1 mmHg AV Velocity Time Integral 20.6 cm LVOT Peak Velocity 102.8 cm/s LVOT Peak Gradient 4.2 mmHg LVOT Velocity Time Integral 20.5 cm MV Area PHT 3.0 cm??? Mitral E Point Velocity 84.7 cm/s Mitral A Point Velocity 43.9 cm/s Mitral E to A Ratio 1.9 MV Deceleration Time 253.0 ms MV E' Velocity 14.0 cm/s Mitral E to MV E' Ratio 6.0 FINDINGS Left Ventricle Left ventricular wall thickness at upper limits of normal. Left ventricular cavity size normal. Normal left ventricular systolic function with no obvious regional wall motion abnormalities. Left ventricular ejection fraction is estimated at 55-60 %. Normal left ventricular diastolic filling pattern. Right Ventricle Normal right ventricular size and function. Right ventricular systolic pressure within normal limits. Right Atrium Normal right atrial size. Left Atrium Normal left atrial size. Mitral Valve Structurally normal mitral valve. No evidence for mitral valve prolapse. No mitral stenosis. Trace to mild mitral regurgitation. Aortic Valve Trileaflet aortic valve. No aortic valve stenosis or regurgitation. Tricuspid Valve Structurally normal tricuspid valve. Mild tricuspid regurgitation. Pulmonic Valve Structurally normal pulmonic valve. Trace pulmonic regurgitation. Pericardium No pericardial effusion. Aorta Normal size aortic root and proximal ascending aorta. CONCLUSIONS Normal LV systolic function Mild tricuspid regurgitation Previewed by: Dr. Ramesh Teresa MD (Electronically Signed) Final Date: 29 January 2024 11:33
[2024-01-29] MEDS: NITROGLYCERIN 1000MCG/10ML SYRINGE INTRACORON ONE (11:41)
[2024-01-29] MEDS: IOPAMIDOL-370 100ML BTL INJ ONE ×2 (11:46→11:57)
[2024-01-29] MEDS ORDERED: RX INFO: IV CONTRAST WAS GIVEN 1 EACH MISC MISCELLANE PRN (11:58)
[2024-01-29] MEDS ORDERED: MAG HYDROX/AL HYDROX/SIMETH 30 ML CUP PO PRN (11:58)
[2024-01-29] MEDS ORDERED: ATROPINE SULFATE 0.1 MG/ML 10ML SYRINGE IV PRN (11:58)
[2024-01-29] MEDS ORDERED: ZOLPIDEM 5 MG TAB PO PRN (11:58)
--- NOTE | 2024-01-29 12:04 | P.PCN ---
Date of Procedure: 01/29/24 Operative Findings: CARDIAC CATHETERIZATION AND PERCUTANEOUS CORONARY INTERVENTION PERFORMING PHYSICIAN: Jose R Rai MD, [facility] PROCEDURE PERFORMED: 1. Selective right and left coronary angiogram 2. Left heart catheterization 3. Successful stenting of distal and mid RCA using 3.0 x 23 and 3.5 x 12 mm Xience JAMILAH with an excellent angiographic results 4. Adjunctive use of intravascular imaging and mechanical aspiration thrombectomy 5. Ultrasound-guided access of the right radial artery INDICATION: Acute non-ST elevation myocardial infarction COMPLICATION: None APPROACH: Right radial artery LEVEL OF SEDATION: Moderate with the sedation time off 48 minutes PROCEDURE DESCRIPTION: After obtaining informed consent the patient was brought to the cardiac Fiberglasser. The right radial artery was cannulated using micropuncture technique under ultrasound guidance and micropuncture wire passed easily then I placed a 16 Kenyan 11 cm sheath. I gave the patient 2 mg of verapamil intra-arterial and heparin IV was given with continuous ACT monitoring. Selective right and left coronary angiogram performed using JR4 and JL 3.5 catheters. Left heart catheterization was performed using the JL 3.5 which crossed the aortic valve. After that I did intervene on the right coronary artery. The procedure was completed with no complication. SELECTIVE CORONARY ANGIOGRAM: The right coronary artery: Large-caliber vessel and a dominant vessel and RCA was occluded in the distal portion with a large thrombus burden Left main: Is angiographically normal. Bifurcates into an LCx and LAD The left circumflex: Large-caliber vessel nondominant vessel. The LCx is angiographically normal and gives rise into the first and second obtuse marginal branches both appear to be angiographically normal. The left anterior descending artery: Large-caliber vessel. The LAD is angiographically normal. Gives rise into a large diagonal branch which appears to be angiographically normal. HEMODYNAMICS: The LVEDP was 5 mmHg with no significant gradient across aortic valve PCI OF THE RCA: Anticoagulation was initiated using heparin with continuous ACT monitoring. Subsequently I did engage the left main using JR4 guiding catheter. I did wire to the right coronary artery. After that I did balloon angioplasty using 2.5 mm balloon but the balloon angioplasty did not restore the flow in the right coronary artery and for that reason I decided to do mechanical aspiration thrombectomy. The catheter was advanced over the wire to the RCA and we were able to aspirate good size red clot. After that I was able to restore the flow to the RCA. Then intravascular ultrasound performed and showed a diameter a round 3 mm. I did balloon angioplasty using 2.5 mm noncompliant balloon before I deployed a 3.0 x 23 mm and subsequently 3.5 x 12 mm stents and stents were positioned under fluoroscopy guidance and deployed under fluoroscopy guidance. Postdilatation was performed using 3.5 mm noncompliant balloon. Final angiogram showed good angiographic results and the procedure was completed with no complication. 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 I did perform successful stenting of the RCA as described above Normal left-sided filling pressure POSTPROCEDURE MANAGEMENT: 1. Dual antiplatelet therapy using aspirin and Effient for 12 month 2. Aggressive cholesterol control 3. Follow-up with the patient
[2024-01-29 15:30] VITALS: BMI 30.8
[2024-01-29] MEDS: METOPROLOL SUCCINATE (ER) 25 MG TAB.ER.24H PO SCH (15:52)
[2024-01-29] MEDS: FAMOTIDINE 20 MG/2 ML VIAL IV SCH (15:53)
[2024-01-29] MEDS: SODIUM CHLORIDE 0.9% 1,000 ML in EMPTY BAG 1 BAG IV SCH (15:59)
[2024-01-29] MEDS: ACETAMINOPHEN TAB 325 MG TAB ONE (15:59)
[2024-01-29] MEDS: ALPRAZolam 0.25 MG TAB PO PRN (20:56)
[2024-01-30] MEDS: PRASUGREL 10 MG TAB PO SCH (08:46)
[2024-01-30 08:54] VITALS: BP 113/77; PULSE 68; RESP 17; TEMP 97.4
[2024-01-30 09:42] LABS: African American GFR (CKD) >90 (>60 ml/min/1.73 sqM); Non-African American GFR(CKD) >90 (>60 ml/min/1.73 sqM)
[2024-01-30] MEDS: EZETIMIBE 10 MG TAB PO SCH (09:57)
--- NOTE | 2024-01-30 14:22 | P.PN ---
Subjective Progress Note Date: 01/30/24 Reason for Consult (text): Acute coronary syndrome History of present illness: History of present illness: This is a 33-year-old male with no previous past medical history, tobacco use and marijuana use. We have been asked to evaluate the patient for acute coronary syndrome. Patient presented to the emergency center with chest pain, shortness of breath. Patient gives history that he developed sharp pressure type midsternal chest pain. This started yesterday at 6 PM while he was carrying firewood into the house. It resolved after about 1 and half hours and after he received morphine. He has had these episodes in the past but they are usually brief and only last about 5 to 10 minutes and go away on their own. Yesterday he also had difficulty in breathing and left arm numbness on and off. He denies having any sweats. No lightheadedness or dizziness no syncopal episodes. He is a smoker of 1 pack/day. He denies any alcohol marijuana or illicit drug use. The father young from myocardial infarction. Mother is alive at age 62 with history of 2 myocardial infarction's and CABG with initially diagnosed at age approximately 52. Patient himself does not have any history of cardiac disease and does not follow with a dust collector attendant. Patient has been started on aspirin morphine nitrates and a heparin drip. Patient is seen today in the emergency center waiting for bed on the cardiac stepdown unit. Discussed results of testing and recommendations for cardiac catheterization and patient is in agreement to move forward with this today. EKG sinus rhythm with no acute ST-T wave changes. Chest x-ray: No acute process CBC INR electrolytes renal function liver function test all unremarkable. Troponin 0.603, 1.01, 1.11. Home cardiac medications: None 01/29 Yesterday, patient underwent cardiac catheterization with Dr. Rai that revealed acute total occlusion of the mid to distal right coronary artery with a large thrombus burden. Subsequently patient underwent successful stenting of the RCA. Echocardiogram reveals normal LV systolic function, mild tricuspid regurgitation. Patient states that he has been ambulating without any symptoms of chest pain, shortness of breath, lightheadedness or dizziness. Blood pressure 113/77, heart rate in the 60s, pulse ox 97% on room air. Creatinine 1.0. Physical examination: Gen: This is a 33-year-old male in no acute distress VS: reviewed LUNGS: Clear to auscultation. No wheezes or rhonchi. No intercostal retractions. HEART: Regular rate and rhythm. No murmur. ABDOMEN: Soft No tenderness. EXTREMITIES: No pedal edema. No calf tenderness. NEUROLOGICAL: Patient is awake, alert and oriented x3. Assessment: Non-ST elevated myocardial infarction Tobacco use and dependence Family history of premature coronary artery disease Plan: Continue current cardiac medications Smoking cessation Patient is cleared for discharge. New prescriptions have been sent to his pharmacy. Nurse practitioner note has been reviewed, I agree with documented findings and plan of care. Patient was seen and examined. Objective - Vital Signs Vital signs: Vital Signs Temp 97.4 F L 01/30/24 08:20 Pulse 68 01/30/24 08:20 Resp 17 01/30/24 08:20 BP 113/77 01/30/24 08:20 Pulse Ox 97 01/30/24 08:20 FiO2 Intake & Output 01/29/24 01/30/24 01/30/24 18:59 06:59 18:59 Intake Total 1040 600 Balance 1040 600 Weight 108.862 kg Intake: IV 600 Oral 440 600 Other: Voiding Method Toilet Toilet # Voids 1 - Labs CBC & Chem 7: 01/29/24 01:58 01/30/24 09:01 Labs: Abnormal Lab Results - Last 24 Hours (Table) 01/29/24 Range/Units 10:15 APTT 43.4 H (22.0-30.0) sec
--- NOTE | 2024-01-30 21:44 | P.DS ---
Providers Date of admission: 01/28/24 21:32 Attending physician: Nikolas Nichols Consults: 01/28/24 21:32 Consult Physician Urgent Consulting Provider: Jose R Rai Consult Reason/Comments: Acute coronary syndrome Do you want consulting provider notified?: Already Contacted 01/29/24 11:59 Consult Physician Routine Consulting Provider: Cardiology Carine Consult Reason/Comments: Post Interventional Patient Do you want consulting provider notified?: Already Contacted Primary care physician: Stated None Hospital Course: Diagnoses None STEMI Nicotine dependence Obesity with BMI of 30.8 Hospital course: This is a pleasant 33 years old male with no significant past medical history Patient presents because of central chest pain of one or duration, nonradiating Clock sharp about 7-8/10 in severity but currently completely resolved as 0/10. Patient evaluated by product marketing coordinator and he underwent cardiac cath requiring stenting of the right coronary artery Postprocedure history with no chest pain. He denies dyspnea. No other new complaints. He is walking freely. Has good appetite. patient is eager to be discharged home Patient was placed on dual antiplatelet therapy by product marketing coordinator with aspirin and Effient. Other cardiac medication by product marketing coordinator Patient was cleared for discharge by product marketing coordinator Problems and management plan were discussed with the patient and he verbalized understanding and acceptance Patient was found stable and can be discharged home in guarded prognosis however he needs follow-up as an outpatient. Patient was instructed to follow up with PCP within one week and patient agrees. Patient was advised to call his medical insurance provider to find a nearby primary care doctor and call and make an appointment in 1 week as per patient and significant other at bedside intends to follow-up with Dr. Molly love they have their contact information Patient was instructed to follow-up with his product marketing coordinator Dr. Fletcher in 1 week after discharge and he agrees Patient prescription was sent to the pharmacy by product marketing coordinator Physical exam Gen: patient is a AAOx3, no distress CVS: S1-S2, RRR, no murmur Lungs: B/L CTA, no wheezing Abdomen: soft, no distention, no tenderness, positive bowel sounds Extremity: no leg edema or induration Time spent more than 35 minutes Patient Condition at Discharge: Serious Plan - Discharge Summary Discharge Rx Participant: No New Discharge Prescriptions: New Prasugrel [Effient] 10 mg PO DAILY #90 tab Atorvastatin [Lipitor] 80 mg PO DAILY #90 tab Nitroglycerin Sl Tabs [Nitrostat] 0.4 mg SUBLINGUAL Q5M PRN #25 tab PRN Reason: Chest Pain Aspirin 81 mg PO DAILY tab Metoprolol Succinate (ER) [Toprol XL] 25 mg PO DAILY #90 tab Ezetimibe [Zetia] 10 mg PO DAILY #90 tab Discharge Medication List Aspirin 81 mg PO DAILY tab 01/30/24 [Rx] Atorvastatin [Lipitor] 80 mg PO DAILY #90 tab 01/30/24 [Rx] Ezetimibe [Zetia] 10 mg PO DAILY #90 tab 01/30/24 [Rx] Metoprolol Succinate (ER) [Toprol XL] 25 mg PO DAILY #90 tab 01/30/24 [Rx] Nitroglycerin Sl Tabs [Nitrostat] 0.4 mg SUBLINGUAL Q5M PRN #25 tab 01/30/24 [Rx] Prasugrel [Effient] 10 mg PO DAILY #90 tab 01/30/24 [Rx] Follow up Appointment(s)/Referral(s): Jose R Rai MD [STAFF PHYSICIAN] - 1 Week (office will call you with appt time) None,Stated [Primary Care Provider] - 1-2 days Patient Instructions/Handouts: Heart Attack (DC), After Radial Heart Catheterization (GEN) Activity/Diet/Wound Care/Special Instructions: CARDIAC CATH Support your puncture site by applying firm, steady pressure whenever you cough, laugh, sneeze or bear down to have a bowel movement (2-day restriction). Watch for any excessive bruising, active bleeding, a firm knot forming under your skin, extreme tenderness and signs of infection (redness, swelling, fever). Shower daily, do not soak puncture in a tub bath, jacuzzi, pool, goldman etc. for 1 week. This is to prevent risk of infection. Drink plenty of fluids the day of and day after your procedure to flush contrast dye out of your kidneys. Take all medications as directed. Never stop any new medication without your physicians OK. No driving for 2 days after procedure. 10- pound weight lifting restriction for 1 week. Low sodium/low fat diet. Activity limited until follow up appointment with your product marketing coordinator. In case of any problems, please call [facility] @ [phone]. Just some important facts for you to know after your stent placement Aspirin as anti-platelet therapy - Aspirin lessens the chance of heart attack and stroke. It helps prevent blood clots from forming, allowing the blood to flow more easily. Each day, you will take one 81 mg (non-enteric coated) tablet daily. Do not stop unless instructed by your doctor. Anti-platelet Therapy. -In addition to aspirin, you will take one additional anti-platelet medication daily. This will help prevent a clot from forming in your stent: Ticagreler (Brillinta) -You will need to take your anti-platelet medicine every day for 12 months -Please consult your heart doctor before you stop this medicine. -They may want you to continue for a longer period of time. Statins -A statin medication lowers cholesterol levels in the blood. This helps slow the progression of heart disease. - Please take your statin medication as prescribed by your doctor. -You may be taking one of the following statins: Rosuvastatin Beta blockers -Your Medication: Metoprolol Is a medication that protects your heart from stress and can prevent future heart attacks. It can slow your heart rate. It can take weeks for your body to get used to a beta santiago. The dose may need to be changed a few times as your body adjusts Angiotensin receptor santiago (ARB) -Your medication: Losartan is an angiotensin receptor santiago in the ER used to reduce cardiovascular events and decrease the risk of developing diabetes, these medications are also known to prevent left ventricular remodeling after you have suffered a myocardial infarction. Do not stop taking these medicines without talking to your doctor. -Take all other medicines as directed by your doctor. Do not take any extra aspirin or ibuprofen. They can increase your risk of bleeding. Many over-the- counter drugs contain aspirin. If you are unsure about what the drug contains, check with your pharmacist before taking it. -For mild discomfort, you may take plain Tylenol (acetaminophen). Follow dose directions, but do not take more than 4,000 mg of acetaminophen in 24 hours. Contact your doctor right away or go to the nearest hospital Emergency Room if you have: -Severe angina or chest pain. (This may be a sign of a problem with your stent.) -Excessive bruising, blood in urine/stool or black tarry stools. Healthy LifeStyle It is important to keep a heart healthy lifestyle. This can improve your long- term health and decrease your risk for heart attacks. -Managing your blood cholesterol, blood pressure, weight, and stress. -The importance of regular exercise. -Heart Healthy Diet: Include more plants in your diet. Eat lots of fresh vegetables and fresh fruits. Eat good fats: plant based oils, avocado, nuts, beans, legumes. Eat more seafood. Limit Meat. Switch to whole grains. -Avoid fried foods and animal fats and processed meats Follow up with your PCP and [facility] Thank you for allowing us to participate in your care, it was truly a pleasure having you for our patient!!! Discharge Disposition: HOME SELF-CARE
== END 2024-01-30 11:13 | disposition home or self-care (01) | DRG 322 ==
LOC: EC 19:16 → 3SCARD 21:32
PROVIDERS: ADMIT Hospitalist; ATTEND Hospitalist
PROC: 02C03ZZ Extirpation of Matter from Coronary Artery, One Artery, Percutaneous Approach (ICD-10-PCS; principal; 2024-01-29 20:20)
PROC: 027035Z Dilation of Coronary Artery, One Artery with Two Drug-eluting Intraluminal Devices, Percutaneous Approach (ICD-10-PCS; principal; 2024-01-29 20:20)
PROC: B240ZZ3 Ultrasonography of Single Coronary Artery, Intravascular (ICD-10-PCS; principal; 2024-01-29 20:20)
PROC: B2111ZZ Fluoroscopy of Multiple Coronary Arteries using Low Osmolar Contrast (ICD-10-PCS; principal; 2024-01-29 20:20)
PROC: 4A023N7 Measurement of Cardiac Sampling and Pressure, Left Heart, Percutaneous Approach (ICD-10-PCS; principal; 2024-01-29 20:20)
DX: I21.4 Non-ST elevation (NSTEMI) myocardial infarction (principal); I25.119 Atherosclerotic heart disease of native coronary artery with unspecified angina pectoris; E66.9 Obesity, unspecified; F17.210 Nicotine dependence, cigarettes, uncomplicated; Z71.6 Tobacco abuse counseling; Z68.30 Body mass index [BMI] 30.0-30.9, adult; Z82.49 Family history of ischemic heart disease and other diseases of the circulatory system; J45.909 Unspecified asthma, uncomplicated; Z91.030 Bee allergy status
CPT/HCPCS: 36415; 71046; 76937; 80053; 80061; 82565; 84484; 85025; 85379; 85610; 85730; 92973; 92978; 93005; 93306; 93458; 96361; 96365; 96366; 96376; 99291

== ENCOUNTER 2025-04-14 20:32 | Emergency (ER) | payer BC ==
[2025-04-14 20:57] LABS: Basophils # (A) 0.05 10*3/uL (0.00-0.10); Basophils % (A) 0.5 %; Eosinophils # (A) 0.05 10*3/uL (0.04-0.35); Eosinophils % (A) 0.5 %; HGB 14.9 g/dL (13.0-17.0); Lymphocytes # (A) 1.44 10*3/uL (0.90-5.00); Lymphocytes % (A) 13.2 %; MCH 29.5 pg (27.0-32.0); MCHC 34.7 g/dL (32.0-37.0); MCV 85.1 fL (80.0-97.0); Mean Platelet Volume 10.7 fL (9.5-12.2); Monocytes # (A) 1.45 10*3/uL (0.20-1.00); Monocytes % (A) 13.3 %; Neutrophils # (A) 7.86 10*3/uL (1.80-7.70); Neutrophils % (A) 72.1 %; Platelet Count 216 10*3/uL (140-440); RBC 5.05 10*6/uL (4.40-5.60); RDW 13.1 % (11.5-14.5); WBC 10.89 10*3/uL (4.50-10.00)
--- NOTE | 2025-04-14 21:04 | XR ---
EXAMINATION TYPE: XR chest 2V DATE OF EXAM: 04/14/2025 8:59 PM COMPARISON: Chest radiographs from 01/28/2024 TECHNIQUE: XR chest 2V Frontal and lateral views of the chest. CLINICAL INDICATION:Male, 34 years old with history of Chest Pain; FINDINGS: Lungs/Pleura: There is no evidence of pleural effusion, focal consolidation, or pneumothorax. Pulmonary vascularity: Unremarkable. Heart/mediastinum: Cardiomediastinal silhouette is unremarkable. Musculoskeletal: No acute osseous pathology. IMPRESSION: No acute cardiopulmonary disease/process. [facility], , 04/14/2025 9:01 PM
[2025-04-14 21:06] LABS: Partial Thromboplastin Time 24.3 sec (22.0-30.0); Prothrombin Time 10.6 sec (10.0-12.5)
[2025-04-14 21:09] LABS: ALT 48 U/L (4-49); AST 32 U/L (17-59); African American GFR (CKD) >90 (>60 ml/min/1.73 sqM); Albumin 4.2 g/dL (3.5-5.0); Alkaline Phosphatase 99 U/L (38-126); Anion Gap 11 mmol/L; Blood Urea Nitrogen 22 mg/dL (9-20); Calcium 9.5 mg/dL (8.4-10.2); Carbon Dioxide 22 mmol/L (22-30); Chloride 104 mmol/L (98-107); Glucose 111 mg/dL (74-99); Non-African American GFR(CKD) 84 (>60 ml/min/1.73 sqM); Potassium 3.8 mmol/L (3.5-5.1); Sodium 137 mmol/L (137-145); Total Bilirubin 0.8 mg/dL (0.2-1.3); Total Protein 6.8 g/dL (6.3-8.2)
[2025-04-14] MEDS: NITROGLYCERIN SL TABS 0.4 MG TAB SUBLINGUAL STA (22:04)
[2025-04-14] MEDS: ASPIRIN 81 MG PO STA (22:04)
--- NOTE | 2025-04-15 00:38 | ED ---
Chest Pain HPI - General Chief Complaint: Chest Pain Stated Complaint: chest pain Time Seen by Provider: 04/14/25 21:28 Source: patient, RN notes reviewed Mode of arrival: ambulatory Limitations: no limitations - History of Present Illness Initial Comments: This is a 34-year-old male who presents to the emergency department for chest pain. States that it started 12 hours ago when he was at work. Pain is substernal and described as a pressure-like sensation. He has a history of an MD requiring stent placement in January 2024. States that the chest pain feels similar, however he had radiation of pain into his left arm at that time, which was not the case this time. Denies any shortness of breath associated with this. Currently follows with Dr. Rai, cardiology. MD Complaint: chest pain - Related Data Previous Rx's Medication Instructions Recorded Aspirin 81 mg PO DAILY tab 01/30/24 Atorvastatin [Lipitor] 80 mg PO DAILY #90 tab 01/30/24 Ezetimibe [Zetia] 10 mg PO DAILY #90 tab 01/30/24 Metoprolol Succinate (ER) [Toprol 25 mg PO DAILY #90 tab 01/30/24 XL] Nitroglycerin Sl Tabs [Nitrostat] 0.4 mg SUBLINGUAL Q5M PRN #25 tab 01/30/24 Prasugrel [Effient] 10 mg PO DAILY #90 tab 01/30/24 Allergies Allergy/AdvReac Type Severity Reaction Status Date / Time bee venom protein (honey bee) Allergy Anaphylaxis Verified 04/14/25 20:43 Review of Systems ROS Statement: Those systems with pertinent positive or pertinent negative responses have been documented in the HPI. ROS Other: All systems not noted in ROS Statement are negative. Past Medical History Past Medical History: No Reported History History of Any Multi-Drug Resistant Organisms: None Reported Past Surgical History: No Surgical Hx Reported Past Anesthesia/Blood Transfusion Reactions: No Reported Reaction Past Psychological History: No Psychological Hx Reported Past Alcohol Use History: Occasional Past Drug Use History: Marijuana General Exam Limitations: no limitations General appearance: alert, in no apparent distress Head exam: Present: atraumatic, normocephalic, normal inspection Respiratory exam: Present: normal lung sounds bilaterally. Absent: respiratory distress, wheezes, rales, rhonchi, stridor Cardiovascular Exam: Present: regular rate, normal rhythm Neurological exam: Present: alert, oriented X3, CN II-XII intact Psychiatric exam: Present: normal affect, normal mood Skin exam: Present: warm, dry, intact, normal color. Absent: rash Course Vital Signs 04/14/25 04/14/25 04/14/25 20:41 21:56 22:18 Temperature 98.3 F 98.1 F Pulse Rate 98 74 72 Respiratory 18 18 18 Rate Blood Pressure 132/76 114/73 113/70 O2 Sat by Pulse 98 96 99 Oximetry 04/15/25 04/15/25 00:03 01:00 Temperature 97.7 F Pulse Rate 65 60 Respiratory 17 18 Rate Blood Pressure 122/79 123/74 O2 Sat by Pulse 98 98 Oximetry Chest Pain MDM - MDM This is a 34-year-old male who presents to the emergency department for chest pain. Was pt. sent in by a medical professional or institution? @ -No Did you speak to anyone other than the patient for history? @ -No Did you review nursing and triage notes? @ -Yes, and I agree, it is accurate with regards to the patient's symptoms. Were old charts reviewed? @ -No Differential Diagnosis? @ -Differential Chest Pain: Stable Angina, Unstable Angina, STEMI, NSTEMI Aortic Dissection, Pneumothorax, Musculoskeletal, Esophageal Spasm GERD, Cholecystitis, Pancreatitis, Zoster, this is not meant to be an all-inclusive list. EKG interpreted by me (3pts min.)? @ -EKG interpreted by me demonstrating the following: Sinus rhythm. Ventricular rate 82 bpm, WA interval 128 ms, QRS duration 94 ms, QTc 379 ms. X-rays interpreted by me (1pt min.)? @ -Chest x-ray obtained, my interpretation identifies no localized consolidations or infiltrates. CT interpreted by me (1pt min.)? @ -Not obtained U/S interpreted by me (1pt. min.)? @ -Not obtained What testing was considered but not performed? (CT, X-rays, U/S, labs)? Why? @ -None What meds were considered but not given? Why? @ -None Did you discuss the management of the patient with other professionals? @ -No Did you reconcile home meds? @ -No Was smoking cessation discussed for >3mins.? @ -I discussed smoking cessation for greater than 3 minutes. The risk of smoking were discussed with the patient including but not limited to risks of cancer, stroke, coronary artery disease and COPD. Also discussed with patient were multiple methods of quitting smoking. Lastly we discussed the financial cost of smoking. Was critical care preformed (if so, how long)? @ -No Were there social determinants of health that impacted care today? How? (Homel essness, low income, unemployed, alcoholism, drug addiction, transportation, low edu. Level, literacy, decrease access to med. care, penitentiary, rehab)? @ -No Was there de-escalation of care discussed even if they declined? (Discuss DNR or withdrawal of care, Hospice)? @ -No What co-morbidities impacted this encounter? (DM, HTN, Smoking, COPD, CAD, Can cer, CVA, Hep., AIDS, mental health diagnosis, sleep apnea, morbid obesity)? @ -Smoking, CAD Was patient admitted / discharged? @ -Discharged. Aspirin and nitroglycerin administered on arrival with improvement in pain. Lab work unremarkable. Troponin negative. Chest x-ray reveals no acute process. I advised admission with cardiology consult given his cardiac history, however patient declined. He was in agreement to a repeat troponin. Troponin repeated at the 3-hour michelle and remained negative. I again advised admission, however he advised that he would rather go home and accepts the risks associated with this. States that he is asymptomatic in terms of pain at the point of discharge. He will follow-up with Dr. Rai for reevaluation. Patient discharged home in stable condition. Case discussed with ED attending Dr. Nieto. Return precautions reviewed in depth, the patient is instructed to return to the emergency department with any new, worsening, or concerning symptoms. Patient verbalized understanding. Undiagnosed new problem with uncertain prognosis? @ -None Drug Therapy requiring intensive monitoring for toxicity (Heparin, Nitro, Insulin, Cardizem)? @ -None Were any procedures done? @ -None Diagnosis/symptom? @ -Chest pain Acute, or Chronic, or Acute on Chronic? @ -Acute Uncomplicated (without systemic symptoms) or Complicated (systemic symptoms)? @ -Uncomplicated Side effects of treatment? @ -None Exacerbation, Progression, or Severe Exacerbation] @ -Not applicable Poses a threat to life or bodily function? @ -This will depend on the cause Disposition Clinical Impression: Chest pain, Nicotine dependence Disposition: HOME SELF-CARE Instructions (If sedation given, give patient instructions): Chest Pain (ED) Additional Instructions: Return to the emergency department with any new, worsening, or concerning symptoms. Follow up with your government clerk. Is patient prescribed a controlled substance at d/c from ED?: No Referrals: None,Stated [Primary Care Provider] - 1-2 days Time of Disposition: 00:45
[2025-04-15 01:10] VITALS: BP 123/74; PULSE 60; RESP 18; TEMP 97.7
== END 2025-04-15 01:10 | disposition home or self-care (01) ==
LOC: EC 20:32
DX: R07.89 Other chest pain (principal); I25.10 Atherosclerotic heart disease of native coronary artery without angina pectoris; F17.200 Nicotine dependence, unspecified, uncomplicated; Z91.030 Bee allergy status
CPT/HCPCS: 36415; 71046; 80053; 83735; 84484; 85025; 85610; 85730; 93005; 99285; 99406